=== PATIENT | female | born 1975 | race Hispanic/Latino ===

== ENCOUNTER → 2020-06-08 | Outpatient (CLI) | payer BC | LOC: MAMMO 14:38 | PROVIDERS: ATTEND Internal Medicine | DX: Z12.31 Encounter for screening mammogram for malignant neoplasm of breast (principal); M85.80 Other specified disorders of bone density and structure, unspecified site | CPT/HCPCS: 77067; 77080 ==

== ENCOUNTER → 2024-10-10 | Outpatient (REF) | payer OTHER | LOC: US 08:31 | PROVIDERS: ATTEND Family Medicine | DX: R94.5 Abnormal results of liver function studies (principal) | CPT/HCPCS: 76705 ==